=== PATIENT | female | born 1950 | race Native Hawaiian/Other Pacific Islander ===

== ENCOUNTER 2016-09-09 13:20 | Observation (INO) | payer MEDICAID ==
[2016-09-09] VITALS (8 sets, daily range): BP systolic 117–195; BP diastolic 62–88; PULSE 68–94; RESP 15–19; TEMP 98–98.2; O2SAT 98–100
[~2016-09-09] VITALS: Ht 160 cm; Wt 45.0 kg
[~2016-09-09 13:20] MED LIST: DIFL150T PO; FISH1000 PO; MACR100C PO; TRIA.1%T TOP
--- NOTE | 2016-09-09 15:15 | PD ---
HPI Chief Complaint: Pain: Acute or Chronic Time Seen by Provider: 14:48 Travel History International Travel<30 days: No Contact w/Intl Traveler<30days: No Traveled to known affect area: No History of Present Illness HPI This is a 65-year-old female with no significant past medical history, who presents today with complaints of neck pain that radiates down to her left shoulder and left arm. The patient states it's intermittent. She reports it's been worse over the last several days. Patient also states that she was seen at an urgent care today and told that she was in a need to have a CAT scan of her neck. They also noted her to have elevated blood pressure. She states that she's never had high blood pressure. She denies any chest pain or chest pressure but states that the neck pain sometimes radiates into her chest on both sides. No reported nausea or vomiting. No reported diaphoresis. PFSH Past Medical History Medical History: Denies Significant Hx Diminished Hearing: No ?: Not Social History Alcohol Use: No Tobacco Use: No Substance Use: No Allergies-Medications (Allergen,Severity, Reaction): Coded Allergies: No Known Allergies (Verified , 09/09/16) Reported Meds & Prescriptions Reported Meds & Active Scripts Active No Active Prescriptions or Reported Medications Review of Systems Except as stated in HPI: all other systems reviewed are Neg General / Constitutional: No: Fever, Chills HENT: Positive: Neck Pain (left lateral), No: Headaches, Vertigo, Lightheadedness Cardiovascular: Positive: Chest Pain or Discomfort (has had the left neck pain radiating down to her), No: Palpitations ( chest.), Irregular Rhythm Respiratory: No: Cough, Shortness of Breath Gastrointestinal: No: Nausea, Vomiting, Abdominal Pain Musculoskeletal: Positive: Myalgias, No: Weakness, Pain (left lateral neck pain rating to her left arm.) Neurologic: Positive: Other (pain from the left lateral neck radiating to the left arm.), No: Weakness, Dizziness, Headache Physical Exam Narrative GENERAL: Well-developed well-nourished female in no acute respiratory distress. SKIN: Focused skin assessment warm/dry. HEAD: Atraumatic. Normocephalic. EYES: No scleral icterus. No injection or drainage. ENT: No nasal bleeding or discharge. Mucous membranes pink and moist. NECK: Trachea midline. Supple. Patient has no tenderness to palpation on the paraspinous or posterior spinous process tenderness. CARDIOVASCULAR: Regular rate and rhythm. No murmur appreciated. RESPIRATORY: No accessory muscle use. Clear to auscultation. Breath sounds equal bilaterally. GASTROINTESTINAL: Abdomen soft, non-tender, nondistended. Hepatic and splenic margins not palpable. MUSCULOSKELETAL: No obvious deformities. No clubbing. No cyanosis. No edema. NEUROLOGICAL: Awake and alert. No obvious cranial nerve deficits. Motor grossly within normal limits. Normal speech. Data Data Last Documented VS Vital Signs Date Time Temp Pulse Resp B/P Pulse Ox O2 Delivery O2 Flow Rate FiO2 09/09/16 14:52 72 16 194/88 100 Room Air 09/09/16 13:21 98.2 Orders Electrocardiogram (09/09/16 15:00) Complete Blood Count With Diff (09/09/16 15:00) Basic Metabolic Panel (Bmp) (09/09/16 15:00) Ckmb (Isoenzyme) Profile (09/09/16 15:00) Troponin I (09/09/16 15:00) Chest, Single Ap (09/09/16 15:00) Ct Cerv Spine W/O Contrast (09/09/16 15:00) Hydralazine Inj (Apresoline Inj) (09/09/16 16:15) Admit To Inpatient (09/09/16 ) Vital Signs (Adult) ABE.Q4H (09/09/16 16:53) Licensed Certified Orthotist / Telemetry ABE.Q8H (09/09/16 16:53) Diet Regular Basic (09/09/16 Dinner) Resp Oxygen Froilan C Titrat 1-4 L (09/09/16 ) Sodium Chloride 0.9% Flush (Ns Flush) (09/09/16 21:00) Inpatient Certification (09/09/16 ) Admit Order (Ed Use Only) (09/09/16 17:13) Labs Laboratory Tests Test 09/09/16 15:10 White Blood Count 10.0 TH/MM3 Red Blood Count 4.26 MIL/MM3 Hemoglobin 13.1 GM/DL Hematocrit 38.4 % Mean Corpuscular Volume 90.0 FL Mean Corpuscular Hemoglobin 30.8 PG Mean Corpuscular Hemoglobin 34.3 % Concent Red Cell Distribution Width 13.3 % Platelet Count 319 TH/MM3 Mean Platelet Volume 9.4 FL Neutrophils (%) (Auto) 60.3 % Lymphocytes (%) (Auto) 29.8 % Monocytes (%) (Auto) 5.5 % Eosinophils (%) (Auto) 3.6 % Basophils (%) (Auto) 0.8 % Neutrophils # (Auto) 6.0 TH/MM3 Lymphocytes # (Auto) 3.0 TH/MM3 Monocytes # (Auto) 0.5 TH/MM3 Eosinophils # (Auto) 0.4 TH/MM3 Basophils # (Auto) 0.1 TH/MM3 CBC Comment DIFF FINAL Differential Comment Sodium Level 138 MEQ/L Potassium Level 3.6 MEQ/L Chloride Level 104 MEQ/L Carbon Dioxide Level 25.8 MEQ/L Anion Gap 8 MEQ/L Blood Urea Nitrogen 8 MG/DL Creatinine 0.81 MG/DL Estimat Glomerular Filtration 71 ML/MIN Rate Random Glucose 69 MG/DL Calcium Level 9.0 MG/DL Total Creatine Kinase 44 U/L Troponin I LESS THAN 0.02 NG/ML MDM Medical Decision Making Medical Screen Exam Complete: Yes Emergency Medical Condition: Yes Differential Diagnosis Cervical spine disease versus atypical ACS versus new onset hypertension Narrative Course 65-year-old female who presents today with complaints of left lateral neck pain rating down to her left arm. Patient also has noted elevated blood pressure. She was seen at [facility] and sent here for the neck and for the blood pressure. The patient has no history of high blood pressure. She states that she does not see doctors. The patient has no primary care physician and has no one to follow up with. Given this, I feel it's important that we rule her out cardiac taylor. Also get her blood pressure under control. She's been given hydralazine IV times one dose here in the emergency department. The case was discussed with Dr. Lora, senior resident for Dr. Mcmanus. Diagnosis Primary Impression: Uncontrolled hypertension Additional Impression: Cervical radicular pain Admitting Information Admitting Physician Requests: Observation Scripts No Active Prescriptions or Reported Meds Krunal Buenrostro MD Sep 09, 2016 15:15
--- NOTE | 2016-09-09 15:21 | RADRPT ---
EXAM DATE/TIME: 09/09/2016 15:00 [facility] COMPARISON: No previous studies available for comparison. INDICATIONS : Chest pain. MEDICAL HISTORY : None. SURGICAL HISTORY : None. ENCOUNTER: Initial ACUITY: 7 - 11 months PAIN SCORE: 3/10 LOCATION: Bilateral chest FINDINGS: A single view of the chest demonstrates the lungs to be symmetrically aerated without evidence of mas s, infiltrate or effusion. The cardiomediastinal contours are unremarkable. Osseous structures are intact. CONCLUSION: No acute disease. Germán Gibson MD on September 09, 2016 at 15:19 Board Certified Radiologist. This report was verified electronically.
[2016-09-09 15:30] LABS: BASOPHIL # 0.1 TH/MM3 (0-0.2); BASOPHIL % 0.8 % (0.0-2.0); EOSINOPHIL # 0.4 TH/MM3 (0-0.4); EOSINOPHIL % 3.6 % (0.0-4.0); HEMATOCRIT 38.4 % (35.0-46.0); HEMO FLAGS DIFF FINAL; LYMPH % 29.8 % (9.0-44.0); MEAN CORPUSCULAR HEMOGLOBIN 30.8 PG (27.0-34.0); MEAN CORPUSCULAR HGB CONC 34.3 % (32.0-36.0); MONO % 5.5 % (0.0-8.0); NEUT % 60.3 % (16.0-70.0); PLATELET COUNT 319 TH/MM3 (150-450); RED BLOOD COUNT 4.26 MIL/MM3 (4.00-5.30); RED CELL DISTRIBUTION WIDTH 13.3 % (11.6-17.2)
[2016-09-09 15:47] LABS: ANION GAP 8 MEQ/L (5-15); BICARBONATE 25.8 MEQ/L (21.0-32.0); BLOOD UREA NITROGEN 8 MG/DL (7-18); CHLORIDE 104 MEQ/L (98-107); GLOMERULAR FILTRATION RATE 71 ML/MIN (>89); POTASSIUM 3.6 MEQ/L (3.5-5.1); SODIUM (NA) 138 MEQ/L (136-145)
[2016-09-09 16:10] LABS: CREATINE KINASE 44 U/L (26-192)
[2016-09-09] MEDS ORDERED: hydrALAZINE HCL 20 MG/ML VIAL IV PUSH ONE (16:15)
--- NOTE | 2016-09-09 16:34 | HHI.HP ---
[facility] Service Family Medicine Primary Care Physician No Primary Care Physician Admission Diagnosis Diagnoses: International Travel<30 Days: No Contact w/Intl Traveler<30days: No Known Affected Area: No History of Present Illness Patient is a poor historian. Patient is a 65 y/o female who presents with high BP and intermittent neck pain radiating down to left shoulder and left arm. Since a week ago, patient has felt pain at the left base of head and neck that radiates to chest, and left arm. Lasts for short periods of time, last episode of pain lasted 5 seconds while sedentary. Pain worse w/movement. Patient also notices increased fatigue and weakness in left arm. Patient initially went to urgent care to address the pain. BP was found to be 165/72. Was urged to go to ED. Denies SOB, headache, syncope, leg edema, N/V, or abdominal pain. Endorses eye pain the last two or three days. Cannot elaborate on presence of visual disturbance due to language barrier. Patient states she had a fall on her left side 7-8 months ago and felt increased pain in her left neck and shoulder. Was associated with left arm weakness. She applied her own home remedies (aryuvedic oil and Ibuprofen). Unclear as to whether new, intermittent pain is different or associated with the older pain. Review of Systems ROS Limitations: Poor Historian Constitutional: DENIES: Fever, Change in appetite Endocrine: DENIES: Polydipsia, Polyuria Eyes: DENIES: Blurred vision, Eye inflammation, Vision loss Ears, nose, mouth, throat: DENIES: Tinnitus, Throat pain Respiratory: DENIES: Cough, Shortness of breath Cardiovascular: DENIES: Chest pain, Syncope, Lower Extremity Edema Gastrointestinal: DENIES: Abdominal pain, Constipation, Diarrhea, Nausea, Vomiting Genitourinary: DENIES: Urinary frequency, Urinary incontinence Musculoskeletal: DENIES: Joint pain, Muscle aches Integumentary: DENIES: Abnormal pigmentation, Pruritus, Rash Hematologic/lymphatic: DENIES: Bruising Immunologic/allergic: DENIES: Eczema Neurologic: DENIES: Abnormal gait, Paresthesias, Seizures, Tremor Psychiatric: DENIES: Anxiety, Confusion, Mood changes Past Family Social History Past Medical History None Past Surgical History None Reported Medications Active No Active Prescriptions or Reported Medications Multivitamin Allergies: Coded Allergies: No Known Allergies (Verified , 09/09/16) Family History Dad: healthy Mom: healthy Social History no ETOH, smoking, drugs Physical Exam Vital Signs Vital Signs Date Time Temp Pulse Resp B/P Pulse Ox O2 Delivery O2 Flow Rate FiO2 09/09/16 14:52 72 16 194/88 100 Room Air 09/09/16 13:21 98.2 82 15 195/84 98 Physical Exam GENERAL: This is a very thin, elderly patient in no apparent distress. SKIN: No rashes, ecchymoses or lesions. Cool and dry. HEAD: Atraumatic. Normocephalic. EYES: Pupils equal round and reactive. Extraocular motions intact. No scleral icterus. No injection or drainage. ENT: Throat without erythema, tonsillar hypertrophy or exudate. Uvula midline. Airway patent. NECK: Trachea midline. No JVD or lymphadenopathy. CARDIOVASCULAR: Regular rate and rhythm without murmurs, gallops, or rubs. RESPIRATORY: Clear to auscultation. Breath sounds equal bilaterally. No wheezes , rales, or rhonchi. GASTROINTESTINAL: Abdomen soft, non-tender, nondistended. No hepato-splenomegaly , or palpable masses. No guarding. MUSCULOSKELETAL: Extremities without clubbing, cyanosis, or edema. No joint tenderness, effusion, or edema noted. No calf tenderness. NEUROLOGICAL: Awake and alert. Cranial nerves II through XII intact. Motor and sensory grossly within normal limits. Five out of 5 muscle strength in all muscle groups. Normal speech. Laboratory Laboratory Tests Test 09/09/16 15:10 White Blood Count 10.0 Red Blood Count 4.26 Hemoglobin 13.1 Hematocrit 38.4 Mean Corpuscular Volume 90.0 Mean Corpuscular Hemoglobin 30.8 Mean Corpuscular Hemoglobin 34.3 Concent Red Cell Distribution Width 13.3 Platelet Count 319 Mean Platelet Volume 9.4 Neutrophils (%) (Auto) 60.3 Lymphocytes (%) (Auto) 29.8 Monocytes (%) (Auto) 5.5 Eosinophils (%) (Auto) 3.6 Basophils (%) (Auto) 0.8 Neutrophils # (Auto) 6.0 Lymphocytes # (Auto) 3.0 Monocytes # (Auto) 0.5 Eosinophils # (Auto) 0.4 Basophils # (Auto) 0.1 CBC Comment DIFF FINAL Differential Comment Sodium Level 138 Potassium Level 3.6 Chloride Level 104 Carbon Dioxide Level 25.8 Anion Gap 8 Blood Urea Nitrogen 8 Creatinine 0.81 Estimat Glomerular Filtration 71 Rate Random Glucose 69 Calcium Level 9.0 Total Creatine Kinase 44 Troponin I LESS THAN 0.02 Result Diagram: 09/09/16 1510 09/09/16 1510 Imaging Last 24 hours Impressions Chest X-Ray 09/09/16 1500 Signed Impressions: Service Date/Time: Friday, September 09, 2016 15:00 - CONCLUSION: No acute disease. Germán Gibson MD Cervical Spine CT 09/09/16 1500 Signed Impressions: Service Date/Time: Friday, September 09, 2016 16:06 - CONCLUSION: Increased kyphosis in the midcervical spine secondary to degenerative disc disease at both C4-5 and C5-6. No evidence of an acute fracture. Adonis Jackson MD Course ED orders: Complete Blood Count With Diff (09/09/16 15:00) Basic Metabolic Panel (Bmp) (09/09/16 15:00) Ckmb (Isoenzyme) Profile (09/09/16 15:00) Troponin I (09/09/16 15:00) Chest, Single Ap (09/09/16 15:00) Ct Cerv Spine W/O Contrast (09/09/16 15:00) Assessment and Plan Assessment and Plan This is a 65 y/o lady w/no significant PMH who presents with neck pain radiating to her chest and elevated BP. Admitted for BP treatment. Due to neck pain coinciding with high BP, ACS r/o is warranted. However, neck pain may also be due to a nerve impingement from degenerative disc disease at C4-C6 or from degenerative disease at the AC joint. There is a possibility for BP effect on end-organs due to patient endorsement of eye pain. Patient will remain obs while BP is slowly decreased. She has responded well to IV hydralazine. Will provide hydralazine PO PRN and/vasotec IV PRN to slowly reduce BP. Code Status FULL Discussed Condition With Dr. Lora Problem List: (1) Uncontrolled hypertension Status: Acute Plan: BP was 165/72 in urgent care. 194/88 in the ED. - received hydralazine 20 mg IV once in the ED. BP decreased to 158/72. - will provide hydralazine PO Q6H PRN for BP >180/110. If not effective, use IV vasotec. - First set of troponins 0.02, last ecg wnl - No abnormalities in CBC or BMP (except for low glucose, likely due to not eating the entire day) - CMP tomorrow - con't to trend troponins (2) Cervical radicular pain Status: Acute Plan: Increased kyphosis secondary to degenerative disc disease at both C4-C5 and C5-C6. - patient endorses a radicular-type pain from the neck radiating to arm - may need pain control outpatient (3) FEN Status: Acute Plan: FEN: Heart healthy diet, replace electrolytes as needed, no IVF DVT prophy: SCDs GI prophyl: none indicated Dispo: overnight for BP control, june d/c tomorrow Physician Certification 2 Midnight Certification Type: Admission for Inpatient Services Order for Inpatient Services Patient is appropriate for obs services. Estimated LOS (days): 2 2 days is the estimated time the patient will need to remain in the hospital, assuming treatment plan goals are met and no additional complications. Post-Hospital Plan: Home Leighann Flaherty MD R1 Sep 09, 2016 16:34
--- NOTE | 2016-09-09 16:39 | RADRPT ---
EXAM DATE/TIME: 09/09/2016 16:06 [facility] COMPARISON: No previous studies available for comparison. INDICATIONS : Neck pain. RADIATION DOSE: 31.42 CTDIvol (mGy) MEDICAL HISTORY : None SURGICAL HISTORY : None. ENCOUNTER: Initial ACUITY: 7 - 11 months PAIN SCALE: 7/10 LOCATION: Cranial neck TECHNIQUE: Volumetric scanning of the cervical spine was performed. Multiplanar reconstructions i n the sagittal, coronal and oblique axial planes were performed. Using automated exposure control a nd adjustment of the mA and/or kV according to patient size, radiation dose was kept as low as reason ably achievable to obtain optimal diagnostic quality images. DICOM format image data is available e lectronically for review and comparison. FINDINGS: CT scan of the cervical spine demonstrates there is an increased kyphosis in the midcer vical spine. There is marked intervertebral disc space narrowing at the C4-5 and C5-6 levels. There a re prominent anterior osteophytes from C4 to C6. The facet joints are well aligned although there is obvious degenerative facet disease on the left side at C2-3 and C3-4, right side at C2-3. No endplate fracture is identified. Soft tissue windows demonstrate no obvious disc herniation or protrusion. Cord is normally shaped. Small disc osteophytes posteriorly at multiple levels. No obvious stenosis is seen. CONCLUSION: Increased kyphosis in the midcervical spine secondary to degenerative disc disease at both C4-5 and C5-6. No evidence of an acute fracture. Adonis Jackson MD on September 09, 2016 at 16:27 Board Certified Radiologist. This report was verified electronically.
[2016-09-09] MEDS ORDERED: BISACODYL 10 MG SUPP RECTAL PRN (17:30)
[2016-09-09] MEDS ORDERED: NALOXONE HCL 0.4 MG/ML AMP IV PRN (17:30)
[2016-09-09] MEDS ORDERED: ACETAMINOPHEN 325 MG TAB PO PRN (17:30)
[2016-09-09] MEDS ORDERED: SODIUM CHLORIDE 0.9% FLUSH 10 ML FLUSH IV FLUSH PRN (17:30)
[2016-09-09] MEDS ORDERED: ONDANSETRON HCL 4 MG/2 ML VIAL IVP PRN (17:30)
[2016-09-09] MEDS ORDERED: MAGNESIUM HYDROXIDE SUSP 30 ML CUP PO PRN (17:30)
[2016-09-09] MEDS ORDERED: SENNOSIDES 8.6 MG TAB PO PRN (17:30)
[2016-09-09] MEDS ORDERED: LACTULOSE SYRUP 20 GM/30 ML CUP PO PRN (17:30)
[2016-09-09] MEDS ORDERED: ENALAPRILAT 1.25 MG/ML VIAL IV PUSH PRN (17:45)
[2016-09-09] MEDS ORDERED: hydrALAZINE HCL 10 MG TAB PO PRN (17:45)
[2016-09-09 20:04] LABS: CREATINE KINASE 52 U/L (26-192)
[2016-09-09] MEDS: DOCUSATE SODIUM 50 MG/SENNA 8.6 MG TAB PO SCH (20:53)
[2016-09-09] MEDS: SODIUM CHLORIDE 0.9% FLUSH 10 ML FLUSH IV FLUSH SCH (21:00)
[2016-09-09] MEDS ORDERED: SODIUM CHLORIDE 0.9% FLUSH 10 ML FLUSH IV FLUSH SCH (21:00)
[2016-09-10 04:25] VITALS: BP 158/72; PULSE 77; RESP 16; TEMP 97.8; O2SAT 97
[2016-09-10 04:38] LABS: ANION GAP 8 MEQ/L (5-15); AST (GOT) 13 U/L (15-37); BICARBONATE 24.4 MEQ/L (21.0-32.0); BLOOD UREA NITROGEN 10 MG/DL (7-18); CHLORIDE 109 MEQ/L (98-107); GLOMERULAR FILTRATION RATE 91 ML/MIN (>89); POTASSIUM 3.8 MEQ/L (3.5-5.1); SODIUM (NA) 141 MEQ/L (136-145)
[2016-09-10 04:42] LABS: ALKALINE PHOSPHATASE 67 U/L (45-117); ALT (GPT) 14 U/L (10-53); TOTAL BILIRUBIN ADULT 0.6 MG/DL (0.2-1.0)
--- NOTE | 2016-09-10 06:56 | HHI.FPPN ---
Subjective Remarks Roselyn Mann is a 65yo lady admitted under observation for hypertensive urgency who presented to the ER after one week history of pain radiating from the base of her skull to her chest and left arm. This pain occurs intermittently , lasts for seconds, and can occur at rest. Associated with fatigue and weakness in her left arm. No SOB, palpitations. She initially went to a local urgent care but was sent to ER when BP was 165/72. For further details, please see resident H&P. This morning, she reports that her pain is under better control. She has questions regarding the results of her CT neck. Blood pressure is improved. Patient would like to go home today. ROS: + neck and left shoulder pain (improved but chronic). No chest pain, no SOB. No palpitations. All other systems reviewed are negative. PMH/PSxH/SocHx/FamHx: Per resident H&P. Significant for: Healthy, no prior surgeries. She does have a h/o fall on her left side ~8 months ago which led to left neck and shoulder pain. Mother and father are healthy. She does not smoke, drink alcohol, or use recreational drugs. Objective Vitals Vital Signs Date Time Temp Pulse Resp B/P Pulse Ox O2 Delivery O2 Flow Rate FiO2 09/10/16 04:25 97.8 77 16 158/72 97 09/09/16 22:56 88 09/09/16 20:03 98.0 94 19 138/74 98 09/09/16 19:20 98 09/09/16 18:57 74 16 117/62 98 09/09/16 17:00 70 16 122/72 99 Room Air 09/09/16 16:00 68 16 144/72 99 Room Air 09/09/16 14:52 72 16 194/88 100 Room Air 09/09/16 13:21 98.2 82 15 195/84 98 Result Diagram: 09/09/16 1510 09/10/16 0357 Objective Remarks GENERAL: in NAD, no resp distress, nontoxic. Sitting comfortably in bed. HEENT: NCAT, EOMI, no scleral icterus, no conjunctival injection. MMM. NECK: Supple, no meningeal signs. No obvious thyromegaly. No tenderness to palpation of cervical spine or paraspinal musculature. CV: RRR, S1 S2. No murmurs. CHEST/PULM: CTAB, no crackles, no wheezes ABD/GI: +BS, soft, nontender, nondistended. EXT: Decrease ROM with left shoulder abduction. 2+ DP pulses. No edema. No calf tenderness. NEURO: Awake, alert. Normal muscle tone. Grossly WNL. 5/5 muscle strength in upper extremities. SKIN: No rashes, no jaundice. PSYCH: Mood and affect are appropriate. Speech fluent. Does not appear to respond to internal stimuli. A/P Assessment and Plan 65yo lady admitted for hypertensive urgency and left sided cervical radiculopathy This is a 65 y/o lady w/no significant PMH who presents with neck pain radiating to her chest and elevated BP. Admitted for BP treatment. Due to neck pain coinciding with high BP, ACS r/o is warranted. However, neck pain may also be due to a nerve impingement from degenerative disc disease at C4-C6 or from degenerative disease at the AC joint. There is a possibility for BP effect on end-organs due to patient endorsement of eye pain. Patient will remain obs while BP is slowly decreased. She has responded well to IV hydralazine. Will provide hydralazine PO PRN and/vasotec IV PRN to slowly reduce BP. Discharge Planning Discharge home today. Blood pressure is under good control. Attending Attestation Patient seen, examined, and discussed with resident team. Problem List: (1) Uncontrolled hypertension Status: Resolved Plan: Blood pressure is under better control overnight. Will initiate lisinopril 10mg daily, and continue at discharge. Follow up BMP has been ordered. Reassured by negative troponins/EKGs x 3. (2) Cervical radicular pain Status: Acute Plan: Patient endorses a radicular-type pain from the neck radiating to arm, which is chronic in nature. CT Neck: Increased kyphosis secondary to degenerative disc disease at both C4- C5 and C5-C6. Initiate Voltaren gel at discharge. PT ordered as an outpatient. Encouraged patient to see PCP, in order to have outpatient follow up of her neck pain / radicular symptoms. Consider MRI C spine, EMG as an outpatient if no improvement in symptoms after trial of PT. Ivana Mcmanus MD Sep 10, 2016 06:56 Ivana Mcmanus MD Sep 10, 2016 06:56
[2016-09-10 08:08] VITALS: BP 129/65; PULSE 85; RESP 20; TEMP 96.3; O2SAT 99
[2016-09-10 08:52] VITALS: PULSE 75
[2016-09-10] MEDS: DOCUSATE SODIUM 50 MG/SENNA 8.6 MG TAB PO SCH (09:00)
[2016-09-10] MEDS ORDERED: LISINOPRIL 5 MG TAB PO SCH (09:00)
[2016-09-10] MEDS ORDERED: LISINOPRIL 10 MG TAB PO SCH (09:30)
[2016-09-10] MEDS ORDERED: DICL1GEL7 TOPICAL (09:34)
[2016-09-10] MEDS ORDERED: LISI10TA3 PO (09:34)
--- NOTE | 2016-09-10 09:37 | HHI.DCPOC ---
Discharge Care Plan Diagnosis: (1) Cervical radicular pain Goals to Promote Your Health * To prevent worsening of your condition and complications * To maintain your health at the optimal level Directions to Meet Your Goals Take your medications as prescribed Follow your dietary instruction Follow activity as directed Keep your appointments as scheduled Take your immunizations and boosters as scheduled If your symptoms worsen call your PCP, if no PCP go to Urgent Care Center or Emergency Room Smoking is Dangerous to Your Health. Avoid second hand smoke Call the 24-hour hour crisis hotline for domestic abuse at Yue Granger MD R2 Sep 10, 2016 09:37
[2016-09-10] MEDS: SODIUM CHLORIDE 0.9% FLUSH 10 ML FLUSH IV FLUSH SCH (09:58)
--- NOTE | 2016-09-10 18:42 | EKG ---
Date Performed: 09/09/2016 Time Performed: 22:25:56 PTAGE: 65 years EKG: Sinus rhythm WITH SINUS ARRHYTHMIA NON-SPECIFIC ST/T WAVE CHANGES PREVIOUS TRACING : 09/09/2016 18.49 Compared to prior tracing no significant change DOCTOR: Tashi Gooden Interpretating Date/Time 09/10/2016 18:40:43
--- NOTE | 2016-09-10 18:51 | EKG ---
Date Performed: 09/09/2016 Time Performed: 18:49:00 PTAGE: 65 years EKG: Sinus rhythm WITH SINUS ARRHYTHMIA NONSPECIFIC ST & T-WAVE ABNORMALITY BORDERLINE ECG PREVIOUS TRACING : 09/09/2016 15.33 Compared to prior tracing no significant change DOCTOR: Tashi Gooden Interpretating Date/Time 09/10/2016 18:50:30
--- NOTE | 2016-09-10 19:03 | EKG ---
Date Performed: 09/09/2016 Time Performed: 15:33:25 PTAGE: 65 years EKG: Sinus rhythm WITH SINUS ARRHYTHMIA NORMAL ECG NO PREVIOUS TRACING DOCTOR: Tashi Gooden Interpretating Date/Time 09/10/2016 19:02:21
== END 2016-09-10 12:10 | disposition home or self-care (01) ==
LOC: NEPC 13:20 → NEDA 17:16 → NEPFCDU 19:23
PROVIDERS: ADMIT Family Medicine; ATTEND Family Medicine
DX: I10 Essential (primary) hypertension (principal); M54.12 Radiculopathy, cervical region; M50.322 Other cervical disc degeneration at C5-C6 level; M40.202 Unspecified kyphosis, cervical region
CPT/HCPCS: 71010; 72125; 80048; 80053; 82550; 84484; 85025; 85652; 93005; 96374; 99285; G0378; J0360